=== PATIENT | male | born 1950 | race Caucasian/White ===

== ENCOUNTER 2019-12-09 15:12 | Outpatient (CLI) | payer MEDICARE, SELFPAY ==
--- NOTE | ~2019-12-09 | CT_ITS ---
EXAMINATION: CT brain wo/w con DATE: 12/09/2019 16:25 INDICATION: Amnesia. Sleep disorder. TECHNIQUE: Computed tomography (CT) of the head was performed without and with 100 cc Omnipaque 350 i ntravenous contrast. The dose-length product was 1210.67 mGy-cm. Automated exposure control and itera tive reconstruction technique were employed. COMPARISON: None FINDINGS: There are scattered mild periventricular and subcortical white matter changes, most likely related to small vessel ischemic disease (microangiopathy). No acute intracranial hemorrhage, infarct ion, mass or mass effect. No ventriculomegaly or midline shift. The basilar cisterns are patent. Ther e is mild intracranial atherosclerosis. No abnormal contrast enhancement. There is mild mucosal thick ening of the left ethmoid air cells. Mastoids are pneumatized. No depressed skull fractures. IMPRESSION: 1. No acute intracranial abnormality. 2: Chronic age-related findings. Reviewed, dictated and finalized at location A.
[2019-12-09 16:18] LABS: Estimated Glomerular Filt Rate > 60
== END 2019-12-09 15:13 | disposition home or self-care (01) ==
PROVIDERS: PCP Physician Assistant; Visit Provider Physician Assistant
DX: R41.3 Other amnesia (principal); F51.8 Other sleep disorders not due to a substance or known physiological condition
CPT/HCPCS: 36415; 70470; Q9967

== ENCOUNTER 2020-06-05 14:40 | Outpatient (CLI) | payer MEDICARE, SELFPAY ==
--- NOTE | ~2020-06-05 | MR_ITS ---
EXAMINATION: MR brain/brain stem wo con DATE: 06/05/2020 15:39 INDICATION: Memory loss. Dementia. TECHNIQUE: Magnetic resonance imaging (MRI) of the brain and brainstem was performed without intraven ous contrast. Sequences included sagittal and axial T1-weighted FSE, axial diffusion-weighted FS EPI, axial T2*-weighted GRE, axial T2-weighted FLAIR Propeller, and axial T2-weighted Propeller. Apparent diffusion coefficient (ADC) maps were created. COMPARISON: Head CT 12/09/2019 FINDINGS: There are scattered areas of nonspecific increased T2-weighted signal intensity in the cere bral white matter. There is no intracranial hemorrhage, acute infarction, or abnormal intracranial ma ss lesion. The ventricles are normal in size. The orbits are normal. There is mild mucosal thickening in the paranasal sinuses. The mastoid air cells are normal. IMPRESSION: 1. Moderate nonspecific cerebral white matter disease, which likely represents chronic small vessel i schemic disease. Reviewed, dictated and finalized at location A. PER DIPPER IMPRESSION: 1. Moderate nonspecific cerebral white matter disease, which likely represents chronic small vessel ischemic disease.
== END 2020-06-05 14:41 | disposition home or self-care (01) ==
PROVIDERS: PCP Physician Assistant
DX: R41.3 Other amnesia (principal); R90.82 White matter disease, unspecified
CPT/HCPCS: 70551

== ENCOUNTER 2024-08-19 13:30 | Outpatient (RCR) | payer MEDICARE, SELFPAY ==
--- NOTE | 2024-07-13 10:06 | OPREHPOC ---
Outpatient Therapy Plan of Care This is a Multidisciplinary Plan of Care that may contain components documented by all disciplines (PT, OT, and ST.) PT Problem 1 PT Problem #1 Knowledge Deficit PT Goal 1 Goal / Goal Update *education to pt and for HEP Target Visit 10 PT Problem 2 PT Problem #2 Impaired Functional Mobility PT Goal 1 Goal / Goal Update * 2 minute walking test distance of 150' Target Visit 10 PT Goal 2 Goal / Goal Update * 5 reps sit/stand time of 40 seconds Target Visit 10 PT Problem 3 PT Problem #3 Impaired Strength PT Goal 1 Goal / Goal Update * sit/stand transfer with use of 1 UE x 5 reps Target Visit 10 PT Goal 2 Goal / Goal Update * pt report NO falls Target Visit 10
--- NOTE | 2024-07-13 10:06 | PTOPEVAL1 ---
Assessment and note entered by Lor Santoro PT Evaluation Information Assessment Status Evaluation ICD-10 Condition Codes (PT) Abnormalities of gait and mobility R26.9,Weakness R53.1 Onset about 1 year Subjective Information per pt and Bernadette: in the past year, more problems with walking and balance; in the past 6 months- have had 1 fall, but often lose balance and reach out for furniture to hold onto and catch himself; do not use walker or cane for walking walk daily 2/10 mile to get mail; GOAL: not want to have any falls or injuries; want him to be more steady to be able to go to adult day care for more socialization and activity Reported Pain Level Pain Score 0: Self Report Additional Pain Score Comments some times have pain in back and shoulders Assessment PT Clinical Summary Ronny has the diagnosis of Lewy Body dementia, decreased gait and balance skills. His Bernadette is very supportive to pt. He has had gradual decline in mobility skills over past year. Issues with mobility started about 5 years ago, with defined diagnosis about 2 years ago of Parkinson's and Lewy Body dementia. He does not use an assistive device and for distances, uses a w/c. With the evaluation, he has decreased LE strength, gait and balance skills, with poor motor planning and command following. Tinetti balance/gait score of 12/28; 2 minute walking test distance of 95', with flat foot pattern and shuffling steps. 5 reps sit/stand time of 62 seconds. Skilled PT skills are indicated to improve his mobility and safety, to decrease risk for falls and decrease care required by his . Plan of Care Interventions Gait Training,Neuro Re-education,Patient/Caregiver Education,Therapeutic Activities,Therapeutic Exercise PT Services Indicated Yes Treatment Frequency and 2x/wk for 10 visits Duration These treatments will address the objective and functional deficits as defined above. The patient will be advanced safely and appropriately in order for the patient to progress towards his/her prior level of function. Additional exercises will be introduced and as well as a comprehensive home exercise program upon discharge, if needed, ?to ensure carryover of functional gains achieved in the clinic. This treatment plan has been reviewed and agreement upon by the patient.
--- NOTE | 2024-07-13 10:59 | OTOPEVDC ---
Assessment and note entered by Glen Christine, MARIE/Luba, CHT OT Evaluation Information & Discharge Summary 07/13/24 Assessment Status Evaluation Diagnosis Lewy body dementia Subjective Information Patient presents today with his , Bernadette, who helps provide history due to patient's memory deficits. She reports she has been helping him dress, bathe, and toilet for about 6 months. She reports he has difficulties with visual-spatial processing and tends to put his clothes on backwards. Visual and cognitive deficits affect his ability to see and accurately use toilet. Feeding - reports he is able to feed himself, it's messy, but he can do it . Assessment OT Clinical Summary Patient referred to OT with dx of Lewy body dementia. Patient presents with deficits with visual-spatial skills, memory, and attention, which is affecting his ability to complete ADLs independently. Patient's has been assisting with all ADLs for about 6 months. Discussed DME for the bathroom, for which they have all necessary equipment for a safe shower. Discussed adaptive toileting techniques, using high contrast to help with visual deficits, for example. Discussed adaptive methods for self-feeding and issued foam for built up handles on his utensils at home. And we also discussed adaptive methods for dressing, however due to the patients memory and attention deficits is unable to understand the steps. Discussed with the ways she can continue to foster his independence in the home and she is already implementing great strategies. Patient's upper body strength is 5/5. At this time no further skilled OT indicated. Thank you for this referral. Plan of Care OT Services Indicated No
--- NOTE | 2024-07-27 10:01 | PCPTNOTE ---
Canceled,reason unknown. AKS
--- NOTE | 2024-08-19 14:25 | PTOPDC ---
Assessment and note entered by Lor Santoro, PT Assessment Status Discharge ICD-10 Condition Codes (PT) Abnormalities of gait and mobility R26.9,Weakness R53.1 Onset about 1 year Subjective Information pt and report: have not had any falls; have been going and walking at [facility] for fitness due to cold weather; have good exercises to do at home; Reported Pain Level Pain Score 0: Self Report Assessment PT Clinical Summary Ronny has received 10 PT sessions. Bernadette is very supportive to pt and does an excellent job with keeping Ronny active and moving, taking him out in the community, doing his HEP with him. Since starting therapy, he has not had any falls. Compared to the initial evaluation: 5 reps sit/ stand time has improved from 62 to 38 seconds; sit/stand with use of 1 UE; 2 minute walking test distance from 95' to 275'; walking pattern varies, but more often--step length is past other foot, with more upright trunk and head more upright; he is able to perform balance activities with constant cues: walk back wards, side R, side L, marching. He has ambulated during PT with upright wheeled walker, regular wheeled walker, and and no device. Depending upon his status for the day--determines his walking ability and if assistive device is needed. The goals were achieved. Education completed and is assisting him at home. Discharge PT services. Plan of Care PT Services Indicated No
== END 2024-08-20 09:31 | disposition home or self-care (01) ==
LOC: ANHPT 13:30
PROVIDERS: PCP Family Medicine
DX: G31.83 Neurocognitive disorder with Lewy bodies (principal); F02.80 Dementia in other diseases classified elsewhere, unspecified severity, without behavioral disturbance, psychotic disturbance, mood disturbance, and anxiety
CPT/HCPCS: 97110; 97112; 97116; 97162; 97166; 97530; 97535